=== PATIENT | male | born 1965 | race Caucasian/White ===

== ENCOUNTER → 2016-09-23 | Outpatient (CLI) | payer BC ==
[2016-09-23 13:01] LABS: CHLORIDE,CL 108 mmol/L (98-110); SODIUM,NA 143 mmol/L (136-146)
== END ==
LOC: MW.CHIM 11:30
PROVIDERS: ATTEND Internal Medicine
DX: Z12.11 Encounter for screening for malignant neoplasm of colon (principal); K21.9 Gastro-esophageal reflux disease without esophagitis
CPT/HCPCS: 36415; 80053; 80061; 85025; G0103

== ENCOUNTER 2021-11-20 09:31 | Emergency (ER) | payer BC ==
[2021-11-20 10:23] LABS: BLOOD UREA NITROGEN,BUN 12 mg/dL (7.0-18.0); CARBON DIOXIDE,CO2 24.2 mmol/L (21.0-32.0); CHLORIDE,CL 104 mmol/L (98-107); GLUCOSE RANDOM 147 mg/dL (74-106); POTASSIUM,K 3.5 mmol/L (3.5-5.1); SODIUM,NA 139 mmol/L (136-148)
[2021-11-20] MEDS ORDERED: Acetaminophen 500 MG Tab PO ONE (13:13)
[2021-11-20] MEDS ORDERED: Iopamidol 755 MG/ML 500 ML Multipack Bottle IVPUSH STA (13:40)
== END 2021-11-20 15:10 ==
LOC: MW.ED 09:31
DX: D72.829 Elevated white blood cell count, unspecified (principal); J81.0 Acute pulmonary edema; D64.9 Anemia, unspecified; R16.1 Splenomegaly, not elsewhere classified; Z79.899 Other long term (current) drug therapy; Z20.822 Contact with and (suspected) exposure to COVID-19
CPT/HCPCS: 36415; 71275; 74176; 80053; 81001; 83615; 83735; 84550; 85025; 85610; 85730; 86850; 86900; 86901; 87635; 93005; 99285; A9270; Q9967; U0002

== ENCOUNTER → 2023-04-12 | Day surgery (SDC) | payer BC ==
[~2023-04-12] MED LIST: Lactated Ringers 1,000 ML IV SCH; fentaNYL 100 MCG/2 ML SDV ONE; propofoL 50 ML ONE
== END | disposition home or self-care (01) ==
LOC: MW.SDS 10:39
PROVIDERS: ATTEND Surgery
DX: K57.30 Diverticulosis of large intestine without perforation or abscess without bleeding (principal); I10 Essential (primary) hypertension; I25.10 Atherosclerotic heart disease of native coronary artery without angina pectoris; C92.10 Chronic myeloid leukemia, BCR/ABL-positive, not having achieved remission; D64.9 Anemia, unspecified; Z87.891 Personal history of nicotine dependence; Z95.1 Presence of aortocoronary bypass graft; Z79.82 Long term (current) use of aspirin; Z79.899 Other long term (current) drug therapy
CPT/HCPCS: 45378; J2704; J3010; J7120

== ENCOUNTER 2023-07-19 06:26 | Day surgery (SDC) | payer BC ==
[~2023-07-19 06:26] MED LIST changes: +cefOXitin 2 GM in Sodium Chloride 0.9% 100 ML IV ONE; -fentaNYL 100 MCG/2 ML SDV ONE; -propofoL 50 ML ONE
[2023-07-19] MEDS ORDERED: Ondansetron 4 MG/2 ML SDV IVPUSH PRN (06:56)
[2023-07-19] MEDS ORDERED: Morphine 2 MG/ML SYRINGE IVPUSH PRN (06:56)
[2023-07-19] MEDS ORDERED: fentaNYL 50 MCG/ML SDV IVPUSH PRN (06:56)
[2023-07-19] MEDS ORDERED: Metoclopramide 10 MG/2 ML SDV IVPUSH PRN (06:56)
[2023-07-19] MEDS ORDERED: HYDROmorphone 1 MG/ML Syringe IVPUSH PRN (06:56)
[2023-07-19] MEDS ORDERED: Naloxone 0.4 MG/ML SDV IVPUSH PRN (06:56)
[2023-07-19] MEDS ORDERED: Albuterol 0.083% 2.5 MG/3 ML Neb Soln NEB PRN (06:56)
[2023-07-19] MEDS ORDERED: droPERidol 5 MG/2 ML SDV IVPUSH PRN (06:56)
[2023-07-19] MEDS ORDERED: Famotidine 20 MG/2 ML SDV ONE (07:36)
[2023-07-19] MEDS ORDERED: Ropivacaine 0.5% 5 MG/ML 30 ML SDV ONE (07:36)
[2023-07-19] MEDS ORDERED: propofoL 50 ML ONE (07:38)
[2023-07-19] MEDS ORDERED: fentaNYL 250 MCG/5 ML SDV ONE (07:39)
[2023-07-19] MEDS ORDERED: Propofol 200 MG/20 ML SDV ONE (07:39)
[2023-07-19] MEDS ORDERED: Morphine 10 MG/ML SDV ONE (07:39)
[2023-07-19] MEDS ORDERED: Bupivacaine 0.5% 30 ML SDV ONE (07:50)
[2023-07-19] MEDS ORDERED: Sugammadex Sodium 200 MG/2 ML VIAL ONE (08:55)
[2023-07-19] MEDS ORDERED: Dexamethasone 4 MG/ML 5 ML MDV ONE (08:55)
[2023-07-19] MEDS ORDERED: dexmedeTOMIDine HCl 200 MCG/2 ML SDV ONE (08:55)
[2023-07-19] MEDS ORDERED: Ondansetron 4 MG/2 ML SDV ONE (08:55)
[2023-07-19] MEDS ORDERED: cefOXitin 1 GM Vial ONE (08:55)
[2023-07-19] MEDS ORDERED: Rocuronium Bromide 50 MG/5 ML Syringe ONE (08:55)
[2023-07-19] MEDS ORDERED: Acetaminophen/HYDROcodone 325-5 MG Tab PO PRN (09:19)
[2023-07-19] MEDS ORDERED: Morphine 4 MG/ML Syringe IVPUSH PRN (09:19)
[2023-07-19] MEDS ORDERED: Lactated Ringers 1,000 ML IV SCH (09:30)
== END 2023-07-19 11:00 | disposition home or self-care (01) ==
LOC: MW.SDS 06:26
PROVIDERS: ATTEND Surgery
DX: K80.10 Calculus of gallbladder with chronic cholecystitis without obstruction (principal); I10 Essential (primary) hypertension; I25.10 Atherosclerotic heart disease of native coronary artery without angina pectoris; E78.5 Hyperlipidemia, unspecified; C92.10 Chronic myeloid leukemia, BCR/ABL-positive, not having achieved remission; Z95.1 Presence of aortocoronary bypass graft; Z87.891 Personal history of nicotine dependence; Z79.82 Long term (current) use of aspirin; Z79.899 Other long term (current) drug therapy
CPT/HCPCS: 47563; 64486; 64488; J0131; J0665; J0694; J1100; J2270; J2405; J2704; J2795; J3010; J3490; J7120; 00790

== ENCOUNTER 2023-11-20 14:24 | Emergency (ER) | payer BC ==
[2023-11-20] MEDS: Tetracaine HCl/PF 0.5% 4 ML Bottle EYERT STA (16:10)
== END 2023-11-20 16:34 | disposition home or self-care (01) ==
LOC: MW.ED 14:24
DX: H57.8A1 Foreign body sensation, right eye (principal); I25.10 Atherosclerotic heart disease of native coronary artery without angina pectoris; Z75.8 Other problems related to medical facilities and other health care; Z79.899 Other long term (current) drug therapy
CPT/HCPCS: 99283; J3490